=== PATIENT | male | born 1955 | race Caucasian/White ===

== ENCOUNTER 2022-05-25 12:54 | Emergency (ER) | payer BC, MEDICARE ==
[2022-05-25 13:03] VITALS: BP 152/80
[2022-05-25 13:39] LABS: BASOPHILS % (AUTO) 0.4 %; EOSINOPHILS # (AUTO) 0.5 10^3/uL (0.0-0.7); EOSINOPHILS % (AUTO) 6.6 %; HCT - HEMATOCRIT 43.9 % (42.0-52.0); HGB - HEMOGLOBIN 14.7 g/dL (14.0-18.0); LYMPHOCYTES # (AUTO) 1.9 10^3/uL (1.5-3.5); LYMPHOCYTES % (AUTO) 25.5 %; MEAN CORPUSCULAR HEMOGLOBIN 29.3 pg (27.0-31.0); MEAN CORPUSCULAR HGB CONC 33.5 g/dL (32.0-36.0); MEAN CORPUSCULAR VOLUME 87.5 fL (80.0-94.0); MEAN PLATELET VOLUME 10.1 fL (7.4-11.4); MONOCYTES # (AUTO) 0.5 10^3/uL (0.0-1.0); MONOCYTES % (AUTO) 6.8 %; NEUTROPHILS # (AUTO) 4.5 10^3/uL (1.5-6.6); NEUTROPHILS % (AUTO) 60.4 %; PLT - PLATELET COUNT 276 10^3/uL (130-450); RED BLOOD COUNT 5.02 10^6/uL (4.70-6.10); RED CELL DISTRIBUTION WIDTH 14.5 % (12.0-15.0); WHITE BLOOD COUNT 7.4 x10^3/uL (4.8-10.8)
[2022-05-25 13:54] LABS: ALBUMIN 4.2 g/dL (3.2-5.5); ALBUMIN/GLOBULIN RATIO 1.3 (1.0-2.2); CALCIUM 9.6 mg/dL (8.5-10.3); CREATININE 1.1 mg/dL (0.6-1.2); POTASSIUM 4.4 mmol/L (3.5-5.0); TOTAL PROTEIN 7.4 g/dL (6.7-8.2)
--- NOTE | 2022-05-25 14:53 | ED Physician Documentation ---
History of Present Illness - Stated complaint Stated Complaint: LT SHOULDER/CHEST PAIN - Chief complaint Chief Complaint: General - History obtained from History obtained from: Patient - History of Present Illness Pain level max: 6 Pain level now: 5 - Additonal information Additional information: Patient is a 67-year-old male who presents to the emergency department complaint of left upper chest/shoulder pain for the past 4 days. Has been mostly constant. Worse with movement, nothing really makes it better. He states that he has been shoveling gravel for the past week. No cardiac history. Does not take any medications. Does not smoke. Review of Systems Ten Systems: 10 systems reviewed and negative Constitutional: denies: Fever, Chills Respiratory: denies: Dyspnea, Cough GI: denies: Abdominal Pain : denies: Dysuria Skin: denies: Rash Musculoskeletal: denies: Neck pain, Back pain Neurologic: denies: Headache PD PAST MEDICAL HISTORY - Past Medical History Past Medical History: No - Past Surgical History Past Surgical History: No - Allergies Allergies/Adverse Reactions: Allergies Allergy/AdvReac Type Severity Reaction Status Date / Time aspirin Allergy Edema Verified 05/25/22 13:03 - Living Situation Living Arrangement: reports: At home - Social History Does the pt smoke?: No Does the pt have substance abuse?: No - Family History Family history: reports: Non contributory PD ED PE NORMAL - Vitals Vital signs reviewed: Yes - General General: Alert and oriented X 3, No acute distress - HEENT HEENT: PERRL, Moist mucous membranes - Neck Neck: Supple, no meningeal sign, No JVD, No bruit - Cardiac Cardiac: RRR, No murmur, Strong equal pulses - Respiratory Respiratory: No respiratory distress, Clear bilaterally - Abdomen Abdomen: Soft, Non tender, Non distended - Derm Derm: Warm and dry - Extremities Extremities: No edema, No calf tenderness / cord - Neuro Neuro: Alert and oriented X 3 - Psych Psych: Normal mood, Normal affect - Free text exam Free text exam: Tender palpation over the left upper chest wall. Reproduces his pain. Results - Vitals Vitals: Vital Signs - 24 hr 05/25/22 12:57 Temperature 36.2 C L Heart Rate 67 Respiratory 16 Rate Blood Pressure 152/80 H O2 Saturation 99 Oxygen O2 Source Room air - EKG (time done) 1301 Rate: Rate (enter#) (60) Rhythm: NSR [place]: Normal Intervals: LBBB - Labs Labs: Laboratory Tests 05/25/22 05/25/22 05/25/22 13:05 13:05 13:05 WBC 7.4 RBC 5.02 Hgb 14.7 Hct 43.9 MCV 87.5 MCH 29.3 MCHC 33.5 RDW 14.5 Plt Count 276 MPV 10.1 Neut # (Auto) 4.5 Lymph # (Auto) 1.9 [place] # (Auto) 0.5 Eos # (Auto) 0.5 Baso # (Auto) 0.0 Absolute Nucleated RBC 0.00 Nucleated RBC % 0.0 Sodium 142 Potassium 4.4 Chloride 105 Carbon Dioxide 28 Anion Gap 9.0 BUN 17 Creatinine 1.1 Estimated GFR (MDRD) 67 L Glucose 107 H Calcium 9.6 Total Bilirubin 1.0 AST 16 ALT 18 Alkaline Phosphatase 57 Troponin I High Sens 3.3 Total Protein 7.4 Albumin 4.2 Globulin 3.2 Albumin/Globulin Ratio 1.3 Lipase 28 PD MEDICAL DECISION MAKING - ED course Complexity details: reviewed results, re-evaluated patient, considered differential (No ST elevation IN, no aortic dissection, no PE, no tension pneumothorax, no aortic aneurysm), d/w patient ED course: Patient with left upper chest pain. EKG has a left bundle branch block. Unclear if this is new or old. Troponin is negative. While awaiting the chest x-ray, the patient eloped from the emergency department. Patient did not check out with staff, he just left the emergency department. This document was made in part using voice recognition software. While efforts are made to proofread this document, sound alike and grammatical errors may occur. Departure - Departure Disposition: ED [place] Clinical Impression: Shoulder pain Qualifiers: Chronicity: acute Laterality: left Qualified Code(s): M25.512 - Pain in left shoulder Chest pain Qualifiers: Chest pain type: unspecified Qualified Code(s): R07.9 - Chest pain, unspecified Condition: Stable Discharge Date/Time: 05/25/22 15:11
== END 2022-05-25 15:11 | disposition left against medical advice (07) ==
LOC: ED 12:54
DX: R07.9 Chest pain, unspecified (principal); M25.512 Pain in left shoulder
CPT/HCPCS: 36415; 80053; 83690; 84484; 85025; 93005; 99282; 99283

== ENCOUNTER 2024-03-07 17:41 | Outpatient (CLI) | payer MEDICARE | END 2024-03-07 23:59 | disposition short-term general hospital (02) | LOC: EMS 17:41 | DX: S79.911A Unspecified injury of right hip, initial encounter (principal); W28.XXXA Contact with powered lawn mower, initial encounter; Y93.H9 Activity, other involving exterior property and land maintenance, building and construction; Y92.009 Unspecified place in unspecified non-institutional (private) residence as the place of occurrence of the external cause | CPT/HCPCS: A0425; A0427 ==